=== PATIENT | male | born 1980 | race Two or more races ===

== ENCOUNTER 2020-04-25 16:38 | Emergency (ER) | payer OTHER ==
[~2020-04-25] VITALS: Ht 172.7 cm; Wt 93.2 kg
[2020-04-25] MEDS ORDERED: MUPIROCIN 2% TOPICAL OINTMENT 22GM TUBE. TP STA (17:07)
[2020-04-25] MEDS ORDERED: ceFAZolin SODIUM 2 GM in IV DEXTROSE 5% 50 ML IV ONE (17:15)
[2020-04-25] MEDS ORDERED: HYDROcodone/APAP 5/325MG 1 TAB TABLET PO ONE (17:15)
[2020-04-25] MEDS ORDERED: ceFAZolin SODIUM 1 GM VIAL ONE (17:21)
[2020-04-25] MEDS ORDERED: IV DEXTROSE 5% 50 ML ONE (17:22)
[2020-04-25 17:26] LABS: BASO % 0 % (0-3); EOS # 0.1 x10^3/uL (0.0-0.7); EOS % 1 % (0-3); HEMATOCRIT 42.6 % (39.0-53.0); HEMOGLOBIN 14.1 g/dL (13.0-17.5); LYMPH # 2.4 x10^3/uL (1.0-4.8); LYMPH % 27 % (24-48); MEAN CORPUSCULAR HEMOGLOBIN 30 pg (25-35); MEAN CORPUSCULAR HGB CONC 33 g/dL (31-37); MEAN CORPUSCULAR VOLUME 89 fL (79-100); MONO # 0.6 x10^3/uL (0.0-1.1); MONO % 7 % (0-9); NEUT # 5.7 x10^3uL (1.8-7.7); NEUT % 65 % (31-73); PLATELET COUNT 346 x10^3/uL (140-400); RED BLOOD COUNT 4.79 x10^6/uL (4.30-5.70); RED CELL DISTRIBUTION WIDTH 12.5 % (11.5-14.5); WHITE BLOOD COUNT 8.8 x10^3/uL (4.0-11.0)
--- NOTE | 2020-04-25 18:17 | PHYS DOC ---
Past History Past Medical History: No Pertinent History Past Surgical History: No Surgical History Alcohol Use: None Adult General Chief Complaint Chief Complaint: ABSCESS HPI HPI Patient is a 39-year-old male presents to the emergency department complaining of a bug bite to his arm that he noticed 3 days ago. Patient states that he thought it was a pimple so he pushed on it and expelled some "pus "out of it. Patient states it started getting bigger and that is when he feared it may be a spider bite or bug bite of some sort. Patient denies taking anything for the pain which she rates at a 5/10 on a 1-10 pain scale. Patient denies any fever or chills, denies any other skin rashes or skin problems, denies any recent exposure to the COVID-19 virus and does not wish to be checked today for the COVID-19 virus, patient denies chest pain, denies shortness of breath, denies abdominal pain, nausea, vomiting, diarrhea, visual changes, or neurological deficits. Patient has no other physical complaints or physical concerns. Patient states his tetanus shot was less than 5 years ago. Review of Systems Review of Systems 14 body systems of review of systems have been reviewed. See HPI for pertinent positives and negative responses, otherwise all other systems are negative, nonpertinent or noncontributory. Current Medications Current Medications Current Medications Medications (Trade) Dose Ordered Sig/Issac Start Time Stop Time Status Last Admin Dose Admin Acetaminophen/ Hydrocodone Bitart (Lortab 5/325) 1 tab 1X ONCE 04/25/20 17:15 04/25/20 17:17 DC Cefazolin Sodium (Ancef) 1 gm STK-MED ONCE 04/25/20 17:21 04/25/20 17:22 DC Cefazolin Sodium 2 gm/Dextrose 50 ml @ 100 mls/hr 1X ONCE 04/25/20 17:15 04/25/20 17:44 DC 04/25/20 17:31 100 MLS/HR Dextrose 50 ml @ As Directed STK-MED ONCE 04/25/20 17:22 04/25/20 17:22 DC Mupirocin (Bactroban) 1 sweta 1X STAT 04/25/20 17:07 04/25/20 17:17 DC 04/25/20 17:30 1 SWETA Allergies Allergies Allergies Coded Allergies Type Severity Reaction Last Updated Verified No Known Drug Allergies 04/25/20 No Physical Exam Physical Exam Constitutional: Well developed, well nourished, no acute distress, non-toxic appearance. HENT: Normocephalic, atraumatic, bilateral external ears normal, oropharynx moist, no oral exudates, nose normal. Eyes: PERRLA, EOMI, conjunctiva normal, no discharge. Neck: Normal range of motion, no tenderness, supple, no stridor. Cardiovascular:Heart rate regular rhythm, no murmur, heart sounds S1-S2. Lungs & Thorax: Bilateral breath sounds clear to auscultation all lung barr. Abdomen: Bowel sounds normal, soft, no tenderness, no masses, no pulsatile ma sses. Skin: Warm, dry, no erythema, no rash. Except for left forearm dorsal skin surface just near elbow has abscess with central punctum fluctuant, with erythema measuring 3 cm in diameter. With lymphangitis extending centrally ap proximately 4 cm. Distal cap refill less than 2 seconds, Back: No tenderness, no CVA tenderness. Extremities: No tenderness, no cyanosis, no clubbing, ROM intact, no edema. Neurologic: Alert and oriented X 3, normal motor function, normal sensory function, no focal deficits noted. Psychologic: Affect normal, judgement normal, mood normal. Current Patient Data Vital Signs Vital Signs Date Time Temp Pulse Resp B/P (MAP) Pulse Ox O2 Delivery O2 Flow Rate FiO2 04/25/20 16:52 98.8 89 18 150/86 (107) 100 Room Air Lab Results Laboratory Tests Test 04/25/20 17:11 White Blood Count 8.8 x10^3/uL (4.0-11.0) Red Blood Count 4.79 x10^6/uL (4.30-5.70) Hemoglobin 14.1 g/dL (13.0-17.5) Hematocrit 42.6 % (39.0-53.0) Mean Corpuscular Volume 89 fL (79-100) Mean Corpuscular Hemoglobin 30 pg (25-35) Mean Corpuscular Hemoglobin Concent 33 g/dL (31-37) Red Cell Distribution Width 12.5 % (11.5-14.5) Platelet Count 346 x10^3/uL (140-400) Neutrophils (%) (Auto) 65 % (31-73) Lymphocytes (%) (Auto) 27 % (24-48) Monocytes (%) (Auto) 7 % (0-9) Eosinophils (%) (Auto) 1 % (0-3) Basophils (%) (Auto) 0 % (0-3) Neutrophils # (Auto) 5.7 x10^3uL (1.8-7.7) Lymphocytes # (Auto) 2.4 x10^3/uL (1.0-4.8) Monocytes # (Auto) 0.6 x10^3/uL (0.0-1.1) Eosinophils # (Auto) 0.1 x10^3/uL (0.0-0.7) Basophils # (Auto) 0.0 x10^3/uL (0.0-0.2) EKG EKG [] Radiology/Procedures Radiology/Procedures [] Heart Score Risk Factors: Risk Factors: DM, Current or recent (<one month) smoker, HTN, HLP, family history of CAD, obesity. Risk Scores: Risk Factors: DM, Current or recent (<one month) smoker, HTN, HLP, family history of CAD, obesity. Course & Med Decision Making Course & Med Decision Making Pertinent Labs and Imaging studies reviewed. (See chart for details) 39-year-old male, vital signs reviewed, presents to the emergency department with an abscess left forearm with lymphangitis extending centrally. An IV was started CBC sent to lab, patient given 2 g Ancef IV piggyback, mupirocin ointment was applied to abscess. Patient given 1 hydrocodone for pain. Discussed and offered admission with patient who elected to instead try a home trial of oral antibiotics, patient given strict return to emergency department instructions, home antibiotic use, home wound care instructions, follow-up with primary care for ongoing problems, patient gave verbal understanding of these instructions, was discharged home without incident Dragon Disclaimer Dragon Disclaimer This electronic medical record was generated, in whole or in part, using a voice recognition dictation system. Departure Departure: Impression: Primary Impression: Abscess Additional Impression: Lymphangitis Disposition: 01 DC HOME SELF CARE/HOMELESS Condition: GOOD Referrals: PCP,NO (PCP) Patient Instructions: Abscess Additional Instructions: Take antibiotics as prescribed, please return to the emergency department immediately for worsening symptoms or other concerns, follow-up with your primary care for ongoing problems. EMERGENCY DEPARTMENT GENERAL DISCHARGE INSTRUCTIONS Thank you for coming to [facility] (ED) today and trusting us with you care. We trust that you had a positivie experience in our Emergency Department. If you wish to speak to the department management, you may call the director at [phone]. YOUR FOLLOW UP INSTRUCTIONS ARE FOLLOWS: 1. Do you have a private Doctor? If you do not have a private doctor, please ask for a resource list of physicians or clinics that may be able to assist you with follow up care. 2. The Emergency Physician has interpreted your x-rays. The X-Ray specialist will also review them. If there is a change in the findings, you will be notified in 48 hours when at all possible. 3. A lab test or culture has been done, your results will be reviewed and you will be notified if you need a change in treatment. ADDITIONAL INSTRUCTIONS AND INFORMATION: 1. Your care today has been supervised by a physician who is specially trained in emergency care. Many problems require more than one evaluation for a complete diagnosis and treatment. We recommend that you schedule your follow up appointment as recommended to ensure complete treatment of you illness or injury. If you are unable to obtain follow up care and continue to have a problem, or if your condition worsens, we recommend that you return to the ED. 2. We are not able to safely determine your condition over the phone nor are we able to give sound medical advice over the phone. For these safety reasons, if you call for medical advice we will ask you to come to the ED for further evaluation. 3. If you have any questions regarding these discharge instructions please call the ED at [phone]. SAFETY INFORMATION: In the interest of safety, wellness, and injury prevention; we encourage you to wear your sealbelt, if you smoke; quite smoking, and we encourage family to use a protective helmet for bicycling and other sporting events that present an increased risk for head injury. IF YOUR SYMPTOMS WORSEN OR NEW SYMPTOMS DEVELOP, OR YOU HAVE CONCERNS ABOUT YOUR CONDITION; OR IF YOUR CONDITION WORSENS WHILE YOU ARE WAITING FOR YOUR FOLLOW UP APPOINTMENT; EITHER CONTACT YOUR PRIMARY CARE DOCTOR, THE PHYSICIAN WHOSE NAME AND NUMBER YOU WERE GIVEN, OR RETURN TO THE ED IMMEDIATELY. Scripts Sulfamethoxazole/Trimethoprim (BACTRIM DS TABLET) 1 Each Tablet 1 TAB PO BID for ABCESS for 10 Days, #20 TAB 0 Refills Prov: ANGELO NEWTON KATHLEEN 04/25/20 Mupirocin (Mupirocin) 1 Gm Oin.pf.sweta 1 SWETA TP TID for ABCESS for 7 Days, #22 GM 0 Refills apply to affected area(s) Prov: ANGELO NEWTON KATHLEEN 04/25/20 Incision and Drainage Indication: [INDICATION:] Abscess left forearm Procedure: The patient was positioned appropriately and the skin over the incision site was Betadine. Local anesthesia was not indicated. An incision was then made over the punctum and 1/2 cc purulent material was expressed. Purulent material was cultured and sent to lab. The patient tolerated the procedure well. Complications: [COMPLICATIONS:] There were no complications. Problem Qualifiers ANGELO NEWTON KATHLEEN Apr 25, 2020 18:17
[2020-04-25 18:18] VITALS: BP 133/88
[2020-04-25] MEDS ORDERED: MUPI1OIN6 TP (18:24)
[2020-04-25] MEDS ORDERED: SULF1TAB24 PO (18:24)
== END 2020-04-25 18:29 | disposition home or self-care (01) ==
LOC: ER 16:38
DX: L02.414 Cutaneous abscess of left upper limb (principal); I89.1 Lymphangitis
CPT/HCPCS: 10060; 36415; 85025; 87070; 96374; 99283; J0690